=== PATIENT | male | born 1995 | race Caucasian/White ===

== ENCOUNTER 2018-10-17 17:47 | Emergency (ER) | payer OTHER ==
[~2018-10-17] VITALS: Ht 177.8 cm; Wt 78.0 kg
[2018-10-17 18:19] VITALS: BP 114/87
[2018-10-17] MEDS ORDERED: LIDOcaine 1% 30ml preserv. free vial IJ STA (19:37)
[2018-10-17] MEDS ORDERED: bacitracin 15gm ointment TP ONE (20:55)
[2018-10-17] MEDS ORDERED: CEPH-572 PO (20:56)
== END 2018-10-17 21:05 | disposition home or self-care (01) ==
LOC: ER 17:47
DX: S61.012A Laceration without foreign body of left thumb without damage to nail, initial encounter (principal); Z79.2 Long term (current) use of antibiotics; W26.0XXA Contact with knife, initial encounter; Y93.89 Activity, other specified; Y92.89 Other specified places as the place of occurrence of the external cause; Y99.8 Other external cause status
CPT/HCPCS: 12032; 73140; 99284

== ENCOUNTER 2020-01-28 18:32 | Emergency (ER) | payer OTHER ==
[~2020-01-28] VITALS: Ht 180.3 cm; Wt 68.2 kg
--- NOTE | 2020-01-28 19:00 | NUR ---
Pt sitting up in bed, unwilling or anable to answer any questions. He stares forawrd and does not make eye contact.
[2020-01-28] MEDS ORDERED: LORazepam 1 MG tablet PO ONE (19:05)
[2020-01-28 19:17] LABS: ALANINE AMINOTRANSFERASE 17 U/L (12-78); ALBUMIN 4.9 G/DL (3.4-5.0); ALBUMIN/GLOBULIN RATIO 1.4 (1.1-1.5); ALKALINE PHOSPHATASE 66 IU/L (46-116); ANION GAP 13 (8-16); ASPARTATE AMINO TRANSFERASE 15 U/L (10-37); BILIRUBIN,TOTAL 1.2 MG/DL (0.1-1.0); BLOOD UREA NITROGEN 15 MG/DL (7-18); BUN/CREATININE RATIO 14.2 (5.4-32.0); CALCIUM 9.7 MG/DL (8.5-10.1); CHLORIDE 103 MMOL/L (99-107); CREATININE 1.06 MG/DL (0.60-1.10); GLUCOSE 114 MG/DL (70-104); POTASSIUM 3.2 MMOL/L (3.5-5.1); SODIUM 143 MMOL/L (135-145); TOTAL CARBON DIOXIDE 26.7 MMOL/L (24-32); TOTAL PROTEIN 8.5 G/DL (6.4-8.2); eGFR 87 ML/MIN
[2020-01-28 19:19] LABS: BASOPHILS % (AUTO) 0.4 % (0-1); EOSINOPHILS % (AUTO) 0 % (0-6); HEMOGLOBIN 16.7 g/dl (14.0-17.9); LYMPHOCYTES # (AUTO) 2.4 X10'3 (1.1-4.8); LYMPHOCYTES % (AUTO) 25.7 % (21-51); MEAN CORPUSCULAR HEMOGLOBIN 30.5 PG (27.0-31.0); MEAN CORPUSCULAR HGB CONC 34.8 g/dL (33.0-36.5); MEAN CORPUSCULAR VOLUME 87.6 FL (78-98); MEAN PLATELET VOLUME 9.5 FL (7.4-10.4); MONOCYTES # (AUTO) 0.9 X10'3 (0-0.9); NEUTROPHILS # (AUTO) 5.9 X10'3 (1.8-7.7); NEUTROPHILS % (AUTO) 63.9 % (42-75); PLATELET COUNT 219 X10'3 (140-440); RED BLOOD COUNT 5.48 X10'6 (4.70-6.10); RED CELL DISTRIBUTION WIDTH 12.3 % (11.5-14.5); WHITE BLOOD COUNT 9.2 X10'3 (4.5-11.0)
[2020-01-28 19:33] LABS: CREATINE KINASE 122 U/L (39-308)
[2020-01-28 19:35] LABS: ETHANOL < 0.010 GM/DL (0.0-0.010)
--- NOTE | 2020-01-28 19:40 | NUR ---
CT scan completed
[2020-01-28] MEDS ORDERED: OLAN5TAB5 PO ×3 (20:08→20:25)
[2020-01-28] MEDS ORDERED: potassium Cl 20 mEq SR tablet PO STA (20:29)
--- NOTE | 2020-01-28 20:46 | NUR ---
's contact info: Brigdia Nicholson [phone]
--- NOTE | 2020-01-28 22:26 | NUR ---
Pt laying in bed with eyes open, offered to help pt use the restroom, but he just stares ahead and does not answer.
--- NOTE | 2020-01-28 23:48 | NUR ---
PT was able to use the urinal, UA specimen collected. PT is becoming slightly more interactive and answering yes and no questions.
[2020-01-29 00:12] LABS: URINE AMPHETAMINE SCREEN NEGATIVE (Neg); URINE BARBITUATE SCREEN NEGATIVE (Neg); URINE BENZODIAZEPINES SCREEN NEGATIVE (Neg); URINE CANNABINOID SCREEN POSITIVE (Neg); URINE COCAINE SCREEN NEGATIVE (Neg); URINE METHADONE SCREEN NEGATIVE (Neg); URINE OPIATE SCREEN NEGATIVE (Neg); URINE PHENCYCLIDINE SCREEN NEGATIVE (Neg)
--- NOTE | 2020-01-29 02:00 | NUR ---
Pt laid down and fell asleep on back, RR 16, even and unlabored
--- NOTE | 2020-01-29 05:36 | NUR ---
PACKET FAXED TO [facility]
--- NOTE | 2020-01-29 07:00 | NUR ---
Pt awake and looking straight ahead. Not answering any questions or wanting to interact.
[2020-01-29] MEDS: OLANZapine 5mg rapidly disint. tablet PO SCH ×2 (07:12→19:13)
--- NOTE | 2020-01-29 09:00 | NUR ---
Miguel from [facility] here to speak with pt. Pt acting like he wants to speak but has a lot going on in his head, so he just stares.
--- NOTE | 2020-01-29 11:00 | NUR ---
Pt still sleeping on left side. Respirations even and unlabored.
--- NOTE | 2020-01-29 13:00 | NUR ---
Pt awake. Informed him it was time to get up and use the bathroom but pt just looked at me. He was assisted to bathroom and voided 400mls. He was placed back in bed and informed it was time to eat. Again he just looked at me. Pt was fed his meals as he would not hold his utencils.
--- NOTE | 2020-01-29 15:04 | NUR ---
primary RN was sent on a lunch break. pt lying on his back in bed respirations even and unlabored.
--- NOTE | 2020-01-29 17:00 | NUR ---
Pt up to bathroom on his own. Now sitting up in bed answering questions after long pauses.
--- NOTE | 2020-01-29 18:57 | NUR ---
Assumed care of patient. Pt. is sitting semi-stauffer position in bed. Pt. responds minimal to questions. Pt. presents with poverty of thought. Pt. is observed staring off into space. Patient's dinner tray sits in front of patient, pt. unsure if he wants to eat. Pt. waiting to be discharged.
[2020-01-29 19:35] VITALS: BP 142/88
--- NOTE | 2020-01-29 19:39 | NUR ---
Reviewed discharge instructions with patient and spouse. Pt. will follow up with Dr. Ace, as per spouse she has been in contact with physician. Pt. left in wheelchair, pt a little disoriented. This is not change in pt's LOC. Pt. and spouse verbalized understanding of instructions. Pt. left in POV with spouse. Pt's affect brightened when he saw his .
== END 2020-01-29 19:43 | disposition home or self-care (01) ==
LOC: ER 18:32
DX: F29 Unspecified psychosis not due to a substance or known physiological condition (principal); Z79.899 Other long term (current) drug therapy
CPT/HCPCS: 36415; 70450; 80053; 80305; 80320; 82550; 84443; 85025; 99284; 99285